=== PATIENT | female | born 1970 | race Caucasian/White ===

== ENCOUNTER 2024-04-07 18:51 | Emergency (ER) | payer OTHER ==
[2024-04-07 19:04] VITALS: O2SAT 100
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
[2024-04-07] MEDS: LIDOCAINE VISCOUS 2% 15 ML UDC MM STA (20:48)
[2024-04-07] MEDS: TETANUS/DIPHTHERIA/PERTUSSIS 0.5 ML SYRINGE IM ONE (20:48)
[2024-04-07 22:29] VITALS: BP 130/80
== END 2024-04-07 22:24 | disposition home or self-care (01) ==
LOC: ED 18:51
DX: S60.512A Abrasion of left hand, initial encounter (principal); V00.141A Fall from scooter (nonmotorized), initial encounter; Z23 Encounter for immunization
CPT/HCPCS: 90471; 99283